=== PATIENT | female | born 1950 | race Caucasian/White ===

== ENCOUNTER 2017-08-27 08:13 | Day surgery (SDC) | payer MEDICARE, OTHER ==
[~2017-08-27 08:13] MED LIST: Dexamethasone 4 MG/ML SDV ONE; Lidocaine 1%/Sod Bicarbonate in NS 8.4% 1 ML Syringe IDERM PRN; Midazolam 1 MG/ML 2 ML SDV ONE; Ondansetron 4 MG/2 ML SDV ONE; Propofol 200 MG/20 ML SDV ONE; Rocuronium 50 MG/5 ML Vial ONE; Sodium Chloride 0.9% 10 ML Syringe FLUSH PRN; ceFAZolin 1 GM Vial ONE; diphenhydrAMINE 50 MG/ML SDV ONE; fentaNYL 250 MCG/5 ML SDV ONE
[2017-08-27] MEDS ORDERED: Lidocaine 1% with EPINEPHrine 1:100,000 20 ML MDV ONE (08:19)
[2017-08-27] MEDS ORDERED: Sodium Chloride 0.9% 50 ML SDV ONE (08:19)
[2017-08-27] MEDS: Lactated Ringers 1,000 ML IV SCH ×2 (08:45→11:46)
--- NOTE | 2017-08-27 08:46 | PCM.PREANE ---
Preanesthetic Assessment - Anesthesia/Transfusion/Family Hx Anesthesia History: Prior Anesthesia Without Reaction Family History of Anesthesia Reaction: No Transfusion History: No Prior Transfusion(s) - Review of Systems General: No Symptoms Pulmonary: No Symptoms Cardiovascular: No Symptoms Gastrointestinal: No Symptoms Neurological: No Symptoms Other: Reports: None - Physical Assessment NPO Status Date: 08/26/17 NPO Status Time: 00:00 Pulse: 59 O2 Sat by Pulse Oximetry: 96 Respiratory Rate: 16 Blood Pressure: 130/77 Temperature: 36.9 C Height: 1.55 m Weight: 67.631 kg ASA Class: 2 Mental Status: Alert & Oriented x3 Dentition: Reports: Normal Dentition Thyro-Mental Finger Breadths: 3 Mouth Opening Finger Breadths: 3 ROM/Head Extension: Full Lungs: Clear to Auscultation, Normal Respiratory Effort Cardiovascular: Regular Rate, Regular Rhythm, No Murmurs - Lab Values: Laboratory Last Values WBC 5.36 K/mm3 (3.98-10.04) 08/26/17 07:26 RBC 4.35 M/mm3 (3.98-5.22) 08/26/17 07:26 Hgb 14.5 gm/L (11.2-15.7) 08/26/17 07:26 Hct 41.5 % (34.1-44.9) 08/26/17 07:26 MCV 95.4 fl (79.4-94.8) H 08/26/17 07:26 MCH 33.3 pg (25.6-32.2) H 08/26/17 07:26 MCHC 34.9 g/dl (32.2-35.5) 08/26/17 07:26 RDW Std Deviation 42.6 fL (36.4-46.3) 08/26/17 07:26 Plt Count 305 K/mm3 (182-369) 08/26/17 07:26 MPV 8.9 fl (9.4-12.3) L 08/26/17 07:26 Neut % (Auto) 40.6 % (34.0-71.1) 08/26/17 07:26 Lymph % (Auto) 47.6 % (19.3-51.7) 08/26/17 07:26 Emanuel % (Auto) 7.8 % (4.7-12.5) 08/26/17 07:26 Eos % (Auto) 3.4 (0.7-5.8) 08/26/17 07:26 Baso % (Auto) 0.6 % (0.1-1.2) 08/26/17 07:26 Neut # (Auto) 2.18 K/mm3 (1.56-6.13) 08/26/17 07:26 Lymph # (Auto) 2.55 K/mm3 (1.18-3.74) 08/26/17 07:26 Emanuel # (Auto) 0.42 K/mm3 (0.24-0.36) H 08/26/17 07:26 Eos # (Auto) 0.18 K/mm3 (0.04-0.36) 08/26/17 07:26 Baso # (Auto) 0.03 K/mm3 (0.01-0.08) 08/26/17 07:26 Sodium 138 mEq/L (136-145) 08/26/17 07:26 Potassium 3.7 mEq/L (3.5-5.1) 08/26/17 07:26 Chloride 105 mEq/L (98-107) 08/26/17 07:26 Carbon Dioxide 27 mEq/L (21-32) 08/26/17 07:26 Anion Gap 9.7 (5-15) 08/26/17 07:26 BUN 13 mg/dL (7-18) 08/26/17 07:26 Creatinine 0.9 mg/dL (0.55-1.02) 08/26/17 07:26 Est Cr Clr Drug Dosing TNP 08/26/17 07:26 Estimated GFR (MDRD) > 60 mL/min (>60) 08/26/17 07:26 BUN/Creatinine Ratio 14.4 (14-18) 08/26/17 07:26 Glucose 94 mg/dL (80-115) 08/26/17 07:26 Calcium 9.3 mg/dL (8.5-10.1) 08/26/17 07:26 Total Bilirubin 1.1 mg/dL (0.2-1.0) H 08/26/17 07:26 AST 24 U/L (15-37) 08/26/17 07:26 ALT 23 U/L (14-59) 08/26/17 07:26 Alkaline Phosphatase 53 U/L (46-116) 08/26/17 07:26 Total Protein 7.4 g/dl (6.4-8.2) 08/26/17 07:26 Albumin 3.7 g/dl (3.4-5.0) 08/26/17 07:26 Globulin 3.7 gm/dL 08/26/17 07:26 Albumin/Globulin Ratio 1.0 (1-2) 08/26/17 07:26 Blood Type A POSITIVE 08/26/17 07:26 Gel Antibody Screen Negative 08/26/17 07:26 - Allergies Allergies/Adverse Reactions: Allergies Allergy/AdvReac Type Severity Reaction Status Date / Time No Known Allergies Allergy Verified 08/26/17 17:29 - Blood Blood Available: Yes Product(s) Available: PRBC - Anesthesia Plan Pre-Op Medication Ordered: None - Acknowledgements Anesthesia Type Planned: General Anesthesia Pt an Appropriate Candidate for the Planned Anesthesia: Yes Alternatives and Risks of Anesthesia Discussed w Pt/Guardian: Yes Pt/Guardian Understands and Agrees with Anesthesia Plan: Yes PreAnesthesia Questionnaire HEENT History: Reports: Impaired Vision Other HEENT History: wears glasses Cardiovascular History: Reports: High Cholesterol, Hypertension Respiratory History: Reports: None Gastrointestinal History: Reports: None, GERD Genitourinary History: Reports: None [employer]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: Neurological History: Reports: None Psychiatric History: Reports: None Endocrine/Metabolic History: Reports: None Hematologic History: Reports: Other (See Below) Other Hematologic History: hypokalemia Immunologic History: Reports: None Oncologic (Cancer) History: Reports: None Dermatologic History: Reports: Other (See Below) Other Dermatologic History: vesicular skin lesions, wound abcess - Past Surgical History Head Surgeries/Procedures: Reports: None Cardiovascular Surgical History: Reports: None Respiratory Surgical History: Reports: None GI Surgical History: Reports: Colonoscopy, EGD Female Surgical History: Reports: None Male Surgical History: Reports: None Endocrine Surgical History: Reports: None Neurological Surgical History: Reports: None Musculoskeletal Surgical History: Reports: Other (See Below) Other Musculoskeletal Surgeries/Procedures:: right ankle surgery with hardware Oncologic Surgical History: Reports: None - SUBSTANCE USE Smoking Status *Q: Never Smoker Tobacco Use Within Last Twelve Months: No Second Hand Smoke Exposure: No Days Per Week of Alcohol Use: 0 Number of Drinks Per Day: 0 Total Drinks Per Week: 0 Recreational Drug Use History: No - HOME MEDS Home Medications: Home Meds Antiox #11/OM3/DHA/EPA/Lut/[place]mond [Eye Health Adult 50+ Softgel] 1 cap PO DAILY 10/06 [History] Cholecalciferol (Vitamin D3) [Vitamin D3] 2,000 unit PO DAILY 08/26/17 [History] Losartan/Hydrochlorothiazide [Losartan-HCTZ 100-12.5 MG] 1 tab PO DAILY [History] Multivitamin [Daily Multiple Vitamin] 1 tab PO DAILY 08/26/17 [History] Potassium 99 mg PO DAILY 08/26/17 [History] - CURRENT (IN HOUSE) MEDS Current Meds: Current Medications Lactated Ringer's (Ringers, Lactated) 1,000 mls @ 125 mls/hr IV ASDIRECTED KAYLA Lidocaine/Sodium Bicarbonate (Buffered Lidocaine 1% In Ns 8.4%) 0.25 ml IDERM ONETIME PRN PRN Reason: Prior to IV Start Sodium Chloride (Saline Flush) 10 ml FLUSH ASDIRECTED PRN PRN Reason: Keep Vein Open Discontinued Medications Cefazolin Sodium (Ancef) Confirm Administered Dose 2 gm .ROUTE .STK-MED ONE Stop: 08/27/17 07:37 Dexamethasone (Dexamethasone) Confirm Administered Dose 8 mg .ROUTE .STK-MED ONE Stop: 08/27/17 07:40 Diphenhydramine HCl (Benadryl) Confirm Administered Dose 50 mg .ROUTE .STK-MED ONE Stop: 08/27/17 07:40 Fentanyl (Sublimaze) Confirm Administered Dose 250 mcg .ROUTE .STK-MED ONE Stop: 08/27/17 07:25 Lidocaine/Epinephrine (Xylocaine 1% With Epinephrine 1:100,000) Confirm Administered Dose 20 ml .ROUTE .STK-MED ONE Stop: 08/27/17 08:20 Midazolam HCl (Versed 1 Mg/Ml) Confirm Administered Dose 2 mg .ROUTE .STK-MED ONE Stop: 08/27/17 07:25 Ondansetron HCl (Zofran) Confirm Administered Dose 4 mg .ROUTE .STK-MED ONE Stop: 08/27/17 07:24 Propofol (Diprivan 20 Ml) Confirm Administered Dose 200 mg .ROUTE .STK-MED ONE Stop: 08/27/17 07:25 Rocuronium [place] (Zemuron) Confirm Administered Dose 50 mg .ROUTE .STK-MED ONE Stop: 08/27/17 07:24 Sodium Chloride (Normal Saline) Confirm Administered Dose 50 ml .ROUTE .STK-MED ONE Stop: 08/27/17 08:20
[2017-08-27] MEDS ORDERED: HYDROmorphone 0.5 MG/0.5 ML Syringe ONE ×2 (09:45)
[2017-08-27] MEDS ORDERED: Lactated Ringers 1,000 ML ONE (09:49)
[2017-08-27] MEDS ORDERED: ePHEDrine/Normal Saline 25 MG/5 ML Syringe ONE (09:52)
[2017-08-27] MEDS ORDERED: Ketorolac 30 MG/ML SDV ONE (10:22)
[2017-08-27] MEDS ORDERED: Ondansetron 4 MG/2 ML SDV IVPUSH PRN (11:02)
[2017-08-27] MEDS ORDERED: fentaNYL 100 MCG/2 ML SDV IVPUSH PRN (11:12)
--- NOTE | 2017-08-27 11:12 | PCM.OPNOTE ---
- General Post-Op/Procedure Note Date of Surgery/Procedure: 08/27/17 Operative Procedure(s): Total vaginal hysterectomy, bilateral salpingo- oophorectomy, anterior and posterior vaginal repair with perineoplasty, subfascial mid-urethral sling procedure Findings: Grade 3 cystocele, grade 1-2 rectocele, grade 3 uterine prolapse, gaping vaginal introitus Pre Op Diagnosis: 1. Cystocele. 2. Rectocele. 3. Uterine prolapse. 4. Stress urinary incontinence Post-Op Diagnosis: Same Anesthesia Technique: General ET Tube Other Anesthesia Type: Lidocaine quarter percent with epinephrine local Primary Surgeon: Dwain Nichols Secondary Surgeon: Jad Molina Anesthesia Provider: Red Cook Fender Mechanic Apprentice: Dennis Cleveland Reason Fender Mechanic Apprentice Was Necessary: Retraction, assistance, patient's safety, quality of care Role of Fender Mechanic Apprentice: Retraction, assistance Pathology: Uterus, tubes and ovaries in one container. Fluid Replacement, Intraop: 1,800 Output, Urine Amount: 25 EBL in mLs: 10 Complications: None Condition: Good Free Text/Narrative:: Surgery duration: 68 minutes Procedure: The patient was placed in supine position on the operating table. She received 2 g of Ancef preoperatively for infection prophylaxis and had sequential compression stockings in place for DVT prophylaxis. General endotracheal anesthesia was accomplished. After positioning, and adequate prep and drape, the procedure was then performed. Sterile speculum was placed in the vagina and cervix was visualized. Cervix was injected with [lidocaine quarter percent with epinephrine]. [20 cc] used. A full circumference incision was made in the cervical epithelium. The bladder was pushed well back off cervix. Posterior cul-de-sac was then entered sharply without problems. Left uterosacral was crossclamped with a Daniele clamp. The left uterosacral and then the right uterosacral ligament pedicles were developed by Daniele clamp and Daniele stitch of #1 Vicryl. The anterior cul-de-sac was then entered without problems and the uterine vasculature, cardinal ligament and broad ligament then developed using Enseal vessel closure system. The uterus was inverted at this time and upper broad ligament fallopian tube pedicles were crossclamped with Daniele clamps. Specimen was totally removed. Left and right fallopian tubes were normal but atrophic in appearance secondary to menopause. Using the vessel closure system each of the tubes was then removed and sent with the specimen. Ovaries removed in similar fashion bilaterally all specimens were sent in the same container. The patient was found to be hemostatically intact at this time. A modified Moschcowitz procedure was done using 0 Monocryl and incorporating both uterosacral ligaments into the vaginal cuff and reapproximating them midline for vaginal cuff support. A pursestring suture was placed in the peritoneal cavity externalizing pedicles in case of bleeding. Anterior vaginal repair was performed in the routine fashion. The midline epithelium was grasped approximately 2 cm from the urethral meatus. The epithelium at the vaginal cuff was grasped 2 with Allis clamps. The epithelium was infiltrated with lidocaine quarter percent with epinephrine approximately 10 mL. Midline incision was made in the epithelium was dissected off the underlying support tissue. The vesicovaginal fascia that remained was then reapproximated midline with approximately 5 V shaped pattern of suturing with 0 Monocryl. This effectively reduced the cystocele. Excess epithelium was removed on each side sharply and the epithelium was reapproximated using 3-0 Monocryl in a short running suture. At this time the vaginal cuff was closed anteriorly to posteriorly using 0 Monocryl suture. Patient's bladder was again drained with a red rubber catheter. 25 mL normal urine was removed. The epithelium overlying the urethra was grasped approximately 1 cm from the urethral meatus and approximately 2 cm cephalad from there with Allis clamps. The area of the skin overlying the medial aspect of the obturator foramen on each side just posterior to the origin the abductor longus muscle was marked with a marking pen. These 2 areas and the sub-fascial layer of the vaginal were then infiltrated with lidocaine quarter percent with epinephrinetotal of approximately 10 mL was used. An incision was made in the epithelium overlying the urethra and 2 small stab wounds 3 mm in length were made in the 2 areas of the panty line of the patient. The subfascial planes and adequately dissected bilaterally to allow placement of the mesh. The helical applicator was then placed through the obturator foramen on patient's left side brought out through the vaginal subfascial plane. Mesh was attached to it and then was pulled back through the obturator foramen. Same was done on the right side. Mesh was then snugged up to the urethra. A Slava Dilator 15 mm in diameter was used as a spacer to place the mesh in a tension-free position. At this point the mesh was cut off at the skin surface and the dilator was removed. The midline epithelium was closed with a short running suture of 3-0 Monocryl. Skin incisions were closed with Dermabond skin glue. These bladder was filled with approximately 240 cc of normal saline at the very end of the case to facilitate voiding and discharge home. Posterior repair was then performed.The uppermost portion of the rectocele was identified and was grasped midline with an Allis clamp. The introital area was grasped at approximately the 4:00 and 8:00 positions at the junction of the vaginal and vulvar epithelium in positions that when approximated midline reduced the caliber of the vaginal introitus to 2 fingerbreadths size. The area of epithelium was then infiltrated with lidocaine quarter percent with epinephrine. A gen-shaped piece of epithelium was removed from the posterior introital and perineal area. The vaginal epithelium was then undermined superiorly to the top of the rectocele. It was then incised midline. With sharp and blunt dissection the epithelium was then dissected off of the underlying rectovaginalvaginal fascia. At this point approximately 3 sutures of 0 Monocryl were placed to reapproximate the lateral supportive tissue midline and reduce the rectocele. The excess epithelium was then excised and the epithelium overlying the rectocele repair was then reapproximated with a running suture of 3-0 Monocryl. Perineoplasty was performed using 4 V-type stitches of 0 Monocryl. This lengthened the perineal body and the vagina. It also changed the angle of the vagina to more horizontal then vertical. At this point the epithelium over the perineum was closed in an episiotomy fashion using the 3-0 Monocryl suture. Patient was returned to supine position and awakened from general endotracheal anesthesia. She tolerated the procedure and left the operating room in satisfactory condition.
--- NOTE | 2017-08-27 11:14 | PCM.POSTAN ---
POST ANESTHESIA ASSESSMENT - MENTAL STATUS Mental Status: Alert, Oriented - VITAL SIGNS Pulse Rate: 61 SaO2: 99 Resp Rate: 13 Blood Pressure: 126/67 Temperature: 36.4 C - RESPIRATORY Respiratory Status: Respiratory Rate WNL, Airway Patent, O2 Saturation Stable, Supplemental Oxygen - CARDIOVASCULAR CV Status: Pulse Rate WNL, Blood Pressure Stable - GASTROINTESTINAL GI Status: No Symptoms - PAIN Pain Score: 0 - POST OP HYDRATION Hydration Status: Adequate & Stable - OBSERVATIONS Free Text/Narrative:: no anesthesia complications noted
[2017-08-27] MEDS ORDERED: Ketorolac 30 MG/ML SDV IVPUSH SCH (11:15)
[2017-08-27] MEDS ORDERED: HYDROmorphone 0.5 MG/0.5 ML Syringe IVPUSH PRN (11:16)
[2017-08-27] MEDS ORDERED: Acetaminophen/oxyCODONE 325-5 MG Tab PO ONE (13:12)
== END 2017-08-27 13:56 | disposition home or self-care (01) ==
LOC: JD.SDS 08:13
PROVIDERS: ATTEND Obstetrics & Gynecology
DX: N81.3 Complete uterovaginal prolapse (principal); N39.46 Mixed incontinence; N32.81 Overactive bladder; N88.0 Leukoplakia of cervix uteri; N87.9 Dysplasia of cervix uteri, unspecified; N88.8 Other specified noninflammatory disorders of cervix uteri; D25.0 Submucous leiomyoma of uterus; N83.312 Acquired atrophy of left ovary; N83.311 Acquired atrophy of right ovary; N83.12 Corpus luteum cyst of left ovary; N83.11 Corpus luteum cyst of right ovary; I10 Essential (primary) hypertension; E78.5 Hyperlipidemia, unspecified; Z79.899 Other long term (current) drug therapy; K21.9 Gastro-esophageal reflux disease without esophagitis
CPT/HCPCS: 36415; 57260; 57288; 58262; 80053; 85025; 86850; 86900; 86901; 93005; A9270; C1771; J0690; J1100; J1170; J1200; J1885; J2250; J2405; J3010; J7050; J7120; 00944; J2704

== ENCOUNTER 2020-01-02 08:17 | Day surgery (SDC) | payer MEDICARE, OTHER ==
[~2020-01-02 08:17] MED LIST changes: -Dexamethasone 4 MG/ML SDV ONE; +Lactated Ringers 1,000 ML IV SCH; +Lidocaine 1% 4 ML ONE; -Midazolam 1 MG/ML 2 ML SDV ONE; -Ondansetron 4 MG/2 ML SDV ONE; -Rocuronium 50 MG/5 ML Vial ONE; -ceFAZolin 1 GM Vial ONE; -diphenhydrAMINE 50 MG/ML SDV ONE; +fentaNYL 100 MCG/2 ML SDV ONE; -fentaNYL 250 MCG/5 ML SDV ONE
[2020-01-02] MEDS ORDERED: Diphtheria,Pertussis(Acell),Tetanus Vaccine 0.5 ML Syringe IM ONE (08:23)
--- NOTE | 2020-01-02 08:50 | PCM.PREANE ---
Preanesthetic Assessment - Procedure Proposed Procedure: Screening Colonoscopy Diagnostic EGD - Anesthesia/Transfusion/Family Hx Anesthesia History: Prior Anesthesia Without Reaction Family History of Anesthesia Reaction: No Transfusion History: No Prior Transfusion(s) Intubation History: Unknown - Review of Systems General: No Symptoms Pulmonary: No Symptoms (ETOH:rarely) Cardiovascular: No Symptoms (HTN, elevated lipids) Gastrointestinal: No Symptoms (GERD), Difficulty Swallowing, Nausea, Vomiting (6 weeks ago) Neurological: No Symptoms Other: Reports: None, Liver Problems (History of elevated bilirubin) - Physical Assessment NPO Status Date: 01/02/20 NPO Status Time: 04:30 (prep) Vital Signs: HR: 65 B/P: 123/77 Resp: 16 Sat: 98% Temp: 97.4 Height: 1.55 m Weight: 62.142 kg ASA Class: 2 Mental Status: Alert & Oriented x3 Airway Class: Mallampati = 2 Dentition: Reports: Normal Dentition, Bridge (top), Caries Thyro-Mental Finger Breadths: 3 Mouth Opening Finger Breadths: 3 ROM/Head Extension: Full Lungs: Clear to Auscultation, Normal Respiratory Effort Cardiovascular: Regular Rate, Regular Rhythm, No Murmurs - Lab Values: All labs reviewed and noted and within acceptable ranges to proceed with scheduled procedure. - Imaging/EKG Impressions: September 2018: SR rate= 65, borderline left axis deviation - Allergies Allergies/Adverse Reactions: Allergies Allergy/AdvReac Type Severity Reaction Status Date / Time No Known Allergies Allergy Verified 01/01/20 14:51 - Anesthesia Plan Pre-Op Medication Ordered: None - Acknowledgements Anesthesia Type Planned: MAC Pt an Appropriate Candidate for the Planned Anesthesia: Yes Alternatives and Risks of Anesthesia Discussed w Pt/Guardian: Yes Pt/Guardian Understands and Agrees with Anesthesia Plan: Yes PreAnesthesia Questionnaire HEENT History: Reports: Impaired Vision Other HEENT History: wears glasses Cardiovascular History: Reports: High Cholesterol, Hypertension Other Cardiovascular History: Hypokalemia Respiratory History: Reports: None Gastrointestinal History: Reports: GERD, Other (See Below) Other Gastrointestinal History: Heartburn, dysphagia, elevated bilirubin Genitourinary History: Reports: UTI, Recurrent Other Genitourinary History: Over active bladder, cystocele, rectocele 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: Musculoskeletal History: Reports: Arthritis Other Musculoskeletal History: Right ankle fracture Neurological History: Reports: None Psychiatric History: Reports: None Endocrine/Metabolic History: Reports: None Hematologic History: Reports: Other (See Below) Other Hematologic History: hypokalemia Immunologic History: Reports: None Oncologic (Cancer) History: Reports: None Dermatologic History: Reports: Other (See Below) Other Dermatologic History: vesicular skin lesions, wound abcess - Past Surgical History Head Surgeries/Procedures: Reports: None HEENT Surgical History: Reports: None Cardiovascular Surgical History: Reports: None Respiratory Surgical History: Reports: None GI Surgical History: Reports: Colonoscopy, EGD Female Surgical History: Reports: Hysterectomy Male Surgical History: Reports: None Endocrine Surgical History: Reports: None Neurological Surgical History: Reports: None Musculoskeletal Surgical History: Reports: Other (See Below) Other Musculoskeletal Surgeries/Procedures:: right ankle surgery with hardware Oncologic Surgical History: Reports: None Dermatological Surgical History: Reports: None - SUBSTANCE USE Tobacco Use Status *Q: Never Tobacco User Recreational Drug Use History: No - HOME MEDS Home Medications: Home Meds Cholecalciferol (Vitamin D3) [Vitamin D3] 2,000 unit PO DAILY 08/26/17 [History] Potassium 99 mg PO DAILY 08/26/17 [History] C,E,Zinc,Copper 11/Spubc2l/Lut [Eye Health Adult 50 Plus Sftgl] 1 cap PO DAILY 12/14/19 [History] Losartan Potassium 100 mg PO DAILY 12/14/19 [History] Oxybutynin Chloride 5 mg PO BID 12/14/19 [History] hydroCHLOROthiazide [Hydrochlorothiazide] 25 mg PO DAILY 12/14/19 [History] - CURRENT (IN HOUSE) MEDS Current Meds: Current Medications Lactated Ringer's (Ringers, Lactated) 1,000 mls @ 125 mls/hr IV ASDIRECTED KAYLA Stop: 01/02/20 23:00 Lidocaine/Sodium Bicarbonate (Buffered Lidocaine 1% In Ns 8.4%) 0.25 ml IDERM ONETIME PRN PRN Reason: Prior to IV Start Stop: 01/02/20 18:00 Sodium Chloride (Saline Flush) 10 ml FLUSH ASDIRECTED PRN PRN Reason: Keep Vein Open Stop: 01/02/20 18:00 Discontinued Medications Diphtheria/Tetanus/Acell Pertussis (Adacel) 0.5 ml IM .ONCE ONE Stop: 01/02/20 08:24 Fentanyl (Sublimaze) Confirm Administered Dose 100 mcg .ROUTE .STK-MED ONE Stop: 01/02/20 07:04 Lidocaine HCl (Xylocaine-Mpf 1%) Confirm Administered Dose 4 mls @ as directed .ROUTE .STK-MED ONE Stop: 01/02/20 07:04 Propofol (Diprivan 20 Ml) Confirm Administered Dose 400 mg .ROUTE .STK-MED ONE Stop: 01/02/20 07:04
[2020-01-02] MEDS ORDERED: Ketamine 500 mg/10 ML MDV ONE (09:56)
--- NOTE | 2020-01-02 11:17 | PCM.PRNOTE ---
- Free Text/Narrative Note: Date: 01/02/2020 Procedure: diagnostic EGD, screening colonoscopy Indication: dysphagia Endoscopist: Juan Francisco Hook MD Findings: gross evidence of reflux esophagitis. Cecum reached with colonoscope. There were four 1 cm polyps; one at the appendiceal orifice, one at the splenic flexure (which was extremely difficult to access), and two within the sigmoid colon, the most distal of which was at 35 cm from the anal verge. Diverticulosis and minor internal hemorrhoids noted. Detailed Report: The patient was taken to the endoscopy suite and placed in left lateral decubitus position. Time out was performed and monitored sedation initiated. A bite block was placed. The endoscope was inserted orally and advanced to the second portion of the duodenum with ease. The duodenal mucosa appeared normal. A biopsy with cold forceps was obtained. The stomach appeared normal, without ulceration. A sample of the gastric antral mucosa was obtained. On retroflexion within the stomach, no hiatal hernia was noted. The Z line appeared abnormal, with significant inflammatory changes consistent with reflux esophagitis. A b iopsy of distal esophageal mucosa was obtained. No other esophageal pathology was noted as the scope was withdrawn. Air was suctioned from the stomach prior to removal of the scope. The patient tolerated this procedure well. Next, colonoscopy was performed. Visual inspection of the anus revealed Minor external hemorrhoidal disease. Digital rectal exam was unremarkable. The lubricated colonoscope was then inserted and advanced all the way to the cecum. The ileocecal valve and appendiceal orifice were visualized. There was a 1 cm polyp right at the appendiceal orifice; cold snare polypectomy was performed. The prep was very good. On slow withdrawal of the scope, mucosal surfaces were carefully inspected. Additional similarly sized and shaped polyps were identified at the splenic flexure and sigmoid colon x 2. The splenic flexure lesion was in a very difficult area for access and biopsy; pieces were taken with forceps and the remaining tissue was fulgurated. The proximal sigmoid lesion appeared abnormal with a whitish overlying plaque and some ulcerative changes. The next was a few cm distal, at 35 cm from the verge, with a multilobular appearance. On retroflexion within the rectum, minor internal hemorrhoids were noted and hypertrophied anal papillae noted. Air was suctioned prior to removal of the scope. The patient tolerated the procedure well.
--- NOTE | 2020-01-02 11:24 | PCM48HPAN ---
Post Anesthesia Note - EVALUATION WITHIN 48HRS OF ANESTHETIC Vital Signs in Normal Range: Yes Patient Participated in Evaluation: Yes Respiratory Function Stable: Yes Airway Patent: Yes Cardiovascular Function Stable: Yes Hydration Status Stable: Yes Pain Control Satisfactory: Yes Nausea and Vomiting Control Satisfactory: Yes Mental Status Recovered: Yes Vital Signs: Last Vital Signs Temp 36.3 C 01/02/20 08:20 Pulse 65 01/02/20 08:20 Resp 16 01/02/20 08:20 BP 123/77 01/02/20 08:20 Pulse Ox 98 01/02/20 08:20 1117 107/57 58 16 96% 97F
== END 2020-01-02 12:03 | disposition home or self-care (01) ==
LOC: JD.SDS 08:17
PROVIDERS: ATTEND Surgery
DX: Z12.11 Encounter for screening for malignant neoplasm of colon (principal); D12.3 Benign neoplasm of transverse colon; K29.50 Unspecified chronic gastritis without bleeding; D12.0 Benign neoplasm of cecum; K31.89 Other diseases of stomach and duodenum; K64.8 Other hemorrhoids; E78.5 Hyperlipidemia, unspecified; I10 Essential (primary) hypertension; K21.9 Gastro-esophageal reflux disease without esophagitis; Z79.899 Other long term (current) drug therapy
CPT/HCPCS: 43239; 45385; 45388; 90715; J2001; J2704; J3010; J7120; 00813

== ENCOUNTER 2021-09-11 10:03 | Day surgery (SDC) | payer MEDICARE, OTHER ==
[2021-09-11] MEDS: Polymyxin B/Trimethoprim 10 ML Bottle EYERT SCH ×4 (10:58→12:20)
[2021-09-11] MEDS: Brimonidine 0.2% Ophth Soln 5 ML Bottle EYERT SCH ×4 (11:02→12:20)
[2021-09-11] MEDS: Phenylephrine 2.5% Ophth Soln 2 ML Bot EYERT SCH ×6 (11:06→11:58)
[2021-09-11] MEDS: Tropicamide 1% Ophth Soln 15 ML Bottle EYERT SCH ×4 (11:12→11:50)
[2021-09-11] MEDS: Pilocarpine 4% Ophth Soln 15 ML Bot EYERT SCH ×2 (11:44→12:20)
[2021-09-11] MEDS: Cefuroxime 10 MG/ML SYRINGE EYERT SCH ×2 (11:44→12:18)
[2021-09-11] MEDS: Lidocaine 1% PF 2 ML SDV INJECT SCH ×2 (11:44→12:05)
[2021-09-11] MEDS: Tetracaine HCl/PF 0.5% 4 ML Bottle EYEBOTH SCH ×5 (11:44→12:05)
== END 2021-09-11 12:30 | disposition home or self-care (01) ==
LOC: JD.SDS 10:03
PROVIDERS: ATTEND Ophthalmology
DX: H25.813 Combined forms of age-related cataract, bilateral (principal); H16.223 Keratoconjunctivitis sicca, not specified as Sjogren's, bilateral; H18.503 Unspecified hereditary corneal dystrophies, bilateral; H02.834 Dermatochalasis of left upper eyelid; I10 Essential (primary) hypertension; E78.00 Pure hypercholesterolemia, unspecified; H02.831 Dermatochalasis of right upper eyelid; Z98.890 Other specified postprocedural states; Z79.899 Other long term (current) drug therapy
CPT/HCPCS: 66984; J0697; V2632

== ENCOUNTER 2021-10-09 06:42 | Day surgery (SDC) | payer MEDICARE, OTHER ==
[~2021-10-09 06:42] MED LIST changes: +Cefuroxime 10 MG/ML SYRINGE EYELF SCH; -Lactated Ringers 1,000 ML IV SCH; -Lidocaine 1% 4 ML ONE; +Lidocaine 1% PF 2 ML SDV INJECT SCH; -Lidocaine 1%/Sod Bicarbonate in NS 8.4% 1 ML Syringe IDERM PRN; +Pilocarpine 4% Ophth Soln 15 ML Bot EYELF SCH; -Propofol 200 MG/20 ML SDV ONE; -Sodium Chloride 0.9% 10 ML Syringe FLUSH PRN; -fentaNYL 100 MCG/2 ML SDV ONE
[2021-10-09] MEDS: Polymyxin B/Trimethoprim 10 ML Bottle EYELF SCH ×3 (07:00→08:34)
[2021-10-09] MEDS: Brimonidine 0.2% Ophth Soln 5 ML Bottle EYELF SCH ×3 (07:05→08:34)
[2021-10-09] MEDS: Phenylephrine 2.5% Ophth Soln 2 ML Bot EYELF SCH ×5 (07:10→08:13)
[2021-10-09] MEDS: Tropicamide 1% Ophth Soln 15 ML Bottle EYELF SCH ×4 (07:15→07:49)
[2021-10-09] MEDS: Tetracaine HCl/PF 0.5% 4 ML Bottle EYEBOTH SCH ×4 (07:52→08:24)
== END 2021-10-09 08:50 | disposition home or self-care (01) ==
LOC: JD.SDS 06:42
PROVIDERS: ATTEND Ophthalmology
DX: H25.812 Combined forms of age-related cataract, left eye (principal); H18.513 Endothelial corneal dystrophy, bilateral; H16.223 Keratoconjunctivitis sicca, not specified as Sjogren's, bilateral; E78.00 Pure hypercholesterolemia, unspecified; K21.9 Gastro-esophageal reflux disease without esophagitis; I10 Essential (primary) hypertension; Z98.890 Other specified postprocedural states; Z79.899 Other long term (current) drug therapy
CPT/HCPCS: 66984; J0697; V2632

== ENCOUNTER 2022-08-20 05:55 | Day surgery (SDC) | payer MEDICARE ==
[~2022-08-20 05:55] MED LIST changes: -Cefuroxime 10 MG/ML SYRINGE EYELF SCH; -Lidocaine 1% PF 2 ML SDV INJECT SCH; +Lidocaine 1%/Sod Bicarbonate in NS 8.4% 1 ML Syringe IDERM PRN; -Pilocarpine 4% Ophth Soln 15 ML Bot EYELF SCH; +Sodium Chloride 0.9% 10 ML Syringe FLUSH PRN; +Sodium Chloride 0.9% 10 ML Syringe FLUSH SCH
[2022-08-20] MEDS ORDERED: Morphine 8 MG, EPINEPHrine 0.3 MG, Cefuroxime 750 MG, Ketorolac 30 MG, Sodium Chloride ... PRN ×5 (06:00)
[2022-08-20] MEDS: Lactated Ringers 1,000 ML IV SCH ×2 (06:10→09:36)
[2022-08-20] MEDS ORDERED: Vancomycin 1 GM SDV ONE (06:12)
[2022-08-20] MEDS ORDERED: Tranexamic Acid 1,000 MG/10 ML Vial ONE (06:13)
[2022-08-20] MEDS ORDERED: Lidocaine 1% 4 ML ONE (06:57)
[2022-08-20] MEDS ORDERED: Propofol 200 MG/20 ML SDV ONE ×2 (06:58→07:38)
[2022-08-20] MEDS ORDERED: ceFAZolin 2 GM Vial ONE (07:27)
[2022-08-20] MEDS ORDERED: fentaNYL 100 MCG/2 ML SDV ONE ×2 (07:35→09:16)
[2022-08-20] MEDS ORDERED: Ketamine 500 mg/10 ML MDV ONE (07:54)
[2022-08-20] MEDS ORDERED: ePHEDrine 50 MG/ML SDV ONE (07:59)
[2022-08-20] MEDS ORDERED: Acetaminophen/HYDROcodone 325-5 MG Tab PO PRN (09:09)
[2022-08-20] MEDS ORDERED: Ondansetron 4 MG/2 ML SDV IVPUSH PRN (09:15)
[2022-08-20] MEDS ORDERED: HYDROmorphone 0.5 MG/0.5 ML Syringe IVPUSH PRN (09:15)
[2022-08-20] MEDS: fentaNYL 100 MCG/2 ML SDV IVPUSH PRN ×2 (09:18→09:41)
== END 2022-08-20 12:50 | disposition home or self-care (01) ==
LOC: JD.SDS 05:55
PROVIDERS: ATTEND Orthopaedic Surgery
DX: M16.12 Unilateral primary osteoarthritis, left hip (principal); I10 Essential (primary) hypertension; E78.00 Pure hypercholesterolemia, unspecified; Z79.899 Other long term (current) drug therapy; Z98.890 Other specified postprocedural states; Z79.82 Long term (current) use of aspirin
CPT/HCPCS: 0055T; 27130; 36415; 73501; 86850; 86900; 86901; 97116; 97161; A9270; C1713; C1776; J0171; J0690; J0697; J1170; J1885; J2270; J2704; J3010; J3370; J3490; J7120; 01214; 99100